=== PATIENT | male | born 1950 | race Hispanic/Latino ===

== ENCOUNTER 2018-12-21 13:00 | Observation (INO) | payer MEDICARE ==
[2018-12-21 13:09] VITALS: BMI 30.7
[2018-12-21 13:39] LABS: BASO # 0.02 K/mm3 (0.0-2.0); BASO % 0.3 % (0.0-3.0); EOS # 0.1 (0.0-0.7); EOS % 2.1 % (1.5-5.0); HEMOGLOBIN 13.7 g/dL (14.0-18.0); LYMPH # 1.5 (1.2-3.4); LYMPH % 24.1 % (22.0-35.0); MEAN CELL VOLUME 88.4 fl (80.0-105.0); MEAN CORPUSCULAR HEMOGLOBIN 29.5 pg (25.0-35.0); MEAN CORPUSCULAR HGB CONC 33.3 g/dl (31.0-37.0); MEAN PLATELET VOLUME 11.1 fl (7.0-11.0); MONO # 0.7 (0.1-0.6); MONO % 10.7 % (1.0-6.0); RBC 4.65 10^6/uL (3.5-6.1); RED CELL DISTRIBUTION WIDTH 13.3 % (11.5-14.5); WHITE BLOOD COUNT 6.3 10^3/uL (4.5-11.0)
[2018-12-21 13:50] LABS: ALB/GLOB RATIO 1.4 (1.1-1.8); ALBUMIN 4.3 g/dL (3.0-4.8); ALT/SGPT 24 U/L (7-56); AST/SGOT 27 U/L (17-59); BLOOD UREA NITROGEN 15 mg/dL (7-21); CALCIUM 9.2 mg/dL (8.4-10.5); GFR NON-AFRICAN AMERICAN > 60
--- NOTE | 2018-12-21 13:56 | RAD ---
Date of service: 12/21/2018 HISTORY: chest pain COMPARISON: No prior study available comparison FINDINGS: LUNGS: No active pulmonary disease. PLEURA: No significant pleural effusion identified, no pneumothorax apparent. CARDIOVASCULAR: No aortic atherosclerotic calcification present. Normal cardiac size. No pulmonary vascular congestion. OSSEOUS STRUCTURES: Mild multilevel degenerative spondylosis of the thoracic spine. VISUALIZED UPPER ABDOMEN: Normal. OTHER FINDINGS: None. IMPRESSION: No active disease.
[2018-12-21 14:01] LABS: TROPONIN I < 0.01 ng/mL
--- NOTE | 2018-12-21 14:02 | ED PDOC ---
Arrival/HPI - General Chief Complaint: Chest Pain Time Seen by Provider: 12/21/18 13:12 Historian: Patient - History of Present Illness Narrative History of Present Illness (Text): 12/21/18 13:21 68 y/o M, with past medical history of cardiac stents x1, presents to the ED for evaluation of chest pressure and shortness of breath since 2 days. Patient reports intermittent onset of symptoms, worsened today at gym during exercise, prompting him to present to the ED for evaluation. Patient states symptoms are often brought on while laying down however, present sometimes without any contributing factors. Patient denies any exacerbation of symptoms with deep inspirations. Patient denies any other associated somatic complaints. Patient denies any fevers, chills, headache, dizziness, cough, abdominal pain, nausea, vomiting, diarrhea, back pain, neck pain, or any other complaints.\ PMD: Dr. Lopez Time/Duration: < week Symptom Onset: Gradual Symptom Course: Unchanged Activities at Onset: Light Context: Home Past Medical History - Provider Review Nursing Documentation Reviewed: Yes - Infectious Disease Hx of Infectious Diseases: None - Cardiac Other/Comment: 1 cardiac stent - Psychiatric Hx Substance Use: No Family/Social History - Physician Review Nursing Documentation Reviewed: Yes Family/Social History: Unknown Family HX Smoking Status: Former Smoker Hx Alcohol Use: No Hx Substance Use: No Allergies/Home Meds Allergies/Adverse Reactions: Allergies Penicillins Allergy (Verified 12/21/18 13:09) RASH Review of Systems - Physician Review All systems were reviewed & negative as marked: Yes - Review of Systems Constitutional: absent: Fevers Respiratory: SOB. absent: Cough Cardiovascular: Chest Pain Gastrointestinal: absent: Abdominal Pain, Diarrhea, Nausea, Vomiting Genitourinary Male: absent: Dysuria, Urinary Output Changes Musculoskeletal: absent: Back Pain, Neck Pain Skin: absent: Rash Neurological: absent: Headache, Dizziness Endocrine: absent: Diaphoresis Psychiatric: absent: Anxiety Physical Exam Vital Signs Reviewed: Yes Vital Signs Temp Pulse Resp BP Pulse Ox 12/21/18 13:00 97.5 F L 70 18 138/66 97 Temperature: Afebrile Blood Pressure: Normal Pulse: Regular Respiratory Rate: Normal Appearance: Positive for: Well-Appearing, Non-Toxic, Comfortable Pain Distress: None Mental Status: Positive for: Alert and Oriented X 3 - Systems Exam Head: Present: Atraumatic, Normocephalic Pupils: Present: PERRL Extroacular Muscles: Present: EOMI Conjunctiva: Present: Normal Respiratory/Chest: Present: Clear to Auscultation, Good Air Exchange. No: Respiratory Distress, Accessory Muscle Use Cardiovascular: Present: Regular Rate and Rhythm, Normal S1, S2. No: Murmurs Abdomen: No: Tenderness, Distention, Peritoneal Signs Upper Extremity: Present: Normal Inspection. No: Cyanosis, Edema Lower Extremity: Present: Normal Inspection. No: Edema Neurological: Present: GCS=15, Speech Normal Skin: Present: Warm, Dry, Normal Color. No: Rashes Psychiatric: Present: Alert, Oriented x 3, Normal Insight, Normal Concentration Medical Decision Making ED Course and Treatment: 12/21/18 13:28 Impression: 68 year old male presents to the ED for evaluation of intermittent chest pressure and shortness of breath. Differential Diagnosis included but are not limited to: -- Chest pain r/o ACS Plan: -- EKG -- Labs -- Chest X-ray -- Urinalysis -- Reassess and disposition Prior Visits: Notes and results from previous visits were reviewed. Progress Notes: 12/21/18 15:10 Labs reviewed with no evidence of leukocytosis or elevated troponin. Discussed case with Dr. Cuenca(cardiology) who states patient should have cycling of troponins given his clinical history. Updated Dr. Lopez(PCP) on patient's presence and spoke to Dr. Santos(covering for Dr. Lopez) regarding patient's condition and accepts onto his service for admission - Lab Interpretations Lab Results: Troponin I < 0.01 ng/mL 12/21/18 13:20 Total Bilirubin 0.4 mg/dL (0.2-1.3) 12/21/18 13:20 AST 27 U/L (17-59) 12/21/18 13:20 ALT 24 U/L (7-56) 12/21/18 13:20 Alkaline Phosphatase 52 U/L (38-126) 12/21/18 13:20 Total Protein 7.5 g/dL (5.8-8.3) 12/21/18 13:20 Albumin 4.3 g/dL (3.0-4.8) 12/21/18 13:20 Globulin 3.2 gm/dL 12/21/18 13:20 Albumin/Globulin Ratio 1.4 (1.1-1.8) 12/21/18 13:20 12/21/18 13:20 12/21/18 13:20 Lab Results 12/21/18 14:30: Urine Color Light yellow, Urine Appearance Clear, Urine pH 6.0, Ur Specific [place] <= 1.005, Urine Protein Negative, Urine Glucose (UA) Negative, Urine Ketones Negative, Urine Blood Negative, Urine Nitrate Negative, Urine Bilirubin Negative, Urine Urobilinogen 0.2, Ur Leukocyte Esterase Negative 12/21/18 13:20: Sodium 140, Potassium 3.8, Chloride 103, Carbon Dioxide 26, Anion Gap 15, BUN 15, Creatinine 0.7 L, Est GFR ( Amer) > 60, Est GFR (Non-Af Amer) > 60, Random Glucose 222 H, Calcium 9.2, Magnesium 1.5 L, Total Bilirubin 0.4, AST 27, ALT 24, Alkaline Phosphatase 52, Troponin I < 0.01, Total Protein 7.5, Albumin 4.3, Globulin 3.2, Albumin/Globulin Ratio 1.4 12/21/18 13:20: PT 13.1 H, INR 1.16, APTT 33.3 12/21/18 13:20: WBC 6.3, RBC 4.65, Hgb 13.7 L, Hct 41.1 L, MCV 88.4, MCH 29.5, MCHC 33.3, RDW 13.3, Plt Count 169, MPV 11.1 H, Neut % (Auto) 62.8, Lymph % (Auto) 24.1, [place] % (Auto) 10.7 H, Eos % (Auto) 2.1, Baso % (Auto) 0.3, Lymph # (Auto) 1.5, [place] # (Auto) 0.7 H, Eos # (Auto) 0.1, Baso # (Auto) 0.02, Absolute Neuts (auto) 3.94 I have reviewed the lab results: Yes - RAD Interpretation Narrative RAD Interpretations (Text): 12/21/18 15:03 Chest X-ray reviewed by radiologist, shows: FINDINGS: LUNGS: No active pulmonary disease. PLEURA: No significant pleural effusion identified, no pneumothorax apparent. CARDIOVASCULAR: No aortic atherosclerotic calcification present. Normal cardiac size. No pulmonary vascular congestion. OSSEOUS STRUCTURES: Mild multilevel degenerative spondylosis of the thoracic spine. VISUALIZED UPPER ABDOMEN: Normal. OTHER FINDINGS: None. IMPRESSION: No active disease. Radiology Orders: 12/21/18 13:21 CHEST PORTABLE [RAD] Stat Hand Scudder: Radiologist - EKG Interpretation EKG Interpretation (Text): 12/21/18 13:05 EKG reviewed, shows NSR @ 68bpm, incomplete RBBB, No ST elevations. Interpreted by ED Physician: Yes Type: 12 lead EKG - Medication Orders Current Medication Orders: 12/21/18 15:22 Orders Category Date Time Status EKG [ELECTROCARDIOGRAM] Stat Cardiology 12/21/18 13:05 Completed COMP METABOLIC PANEL Stat Chem 12/21/18 13:20 Completed MAGNESIUM Stat Chem 12/21/18 13:20 Completed TROPONIN I Stat Chem 12/21/18 13:20 Completed Cardiology Consult Routine Cons 12/21/18 15:09 Ordered Heart Healthy Diet [DIET] Diets 12/21/18 Dinner Ordered EKG-ED [EDNURTX] STAT ED Care 12/21/18 13:22 Active EKG-ED [EDNURTX] STAT ED Care 12/21/18 13:28 Active CHEST PORTABLE [RAD] Stat Exams 12/21/18 13:21 Completed CBC (WITH DIFFERENTIAL) Stat CARMEN 12/21/18 13:20 Completed PARTIAL THROMBOPLASTIN TIME [COAG] Stat CARMEN 12/21/18 13:20 Completed PROTHROMBIN TIME [COAG] Stat CARMEN 12/21/18 13:20 Completed IV Insertion (Saline Lock) ONCE NURSING 12/21/18 13:21 Active ED Admit [ED Patient Status Change] Stat PT Status 12/21/18 15:08 Ordered Call MD for full admit orders As Ordered Pt Care 12/21/18 15:09 Ordered Consults Communicated PRN Pt Care 12/21/18 15:09 Ordered URINALYSIS Stat URINALYSIS 12/21/18 14:30 Completed - Scribe Statement The provider has reviewed the documentation as recorded by the Scribe Rula Batres. All medical record entries made by the Scribe were at my direction and personally dictated by me. I have reviewed the chart and agree that the record accurately reflects my personal performance of the history, physical exam, medical decision making, and the department course for this patient. I have also personally directed, reviewed, and agree with the discharge instructions and disposition. Disposition/Present on Arrival - Present on Arrival History of DVT/PE: No History of Uncontrolled Diabetes: No Urinary Catheter: No History of Decub. Ulcer: No History Surgical Site Infection Following: CABG - Mediastinitis, None - Disposition Referrals: Daniella Lopez MD [Primary Care Provider] - Follow up with primary Forms: [employer] (Syriac)
[2018-12-21 14:04] LABS: INR 1.16; PARTIAL THROMBOPLASTIN TIME 33.3 Seconds (26.9-38.3); PROTHROMBIN TIME 13.1 SECONDS (9.4-12.5)
--- NOTE | 2018-12-21 14:19 | CARD ---
APPROVED REPORT Date of service: 12/21/2018 EKG Measurement Heart [id number] <Conclusion> Normal sinus rhythm Incomplete right bundle branch block Borderline ECG
[2018-12-21 14:41] LABS: URINE APPEARANCE CLEAR (CLEAR); URINE BILIRUBIN NEGATIVE (NEGATIVE); URINE BLOOD NEGATIVE (NEGATIVE); URINE COLOR LIGHT YELLOW (YELLOW); URINE GLUCOSE (UA) NEGATIVE (NEGATIVE); URINE LEUKOCYTE ESTERASE NEGATIVE Leu/uL (NEGATIVE); URINE PROTEIN NEGATIVE mg/dL (<30 mg/dL); URINE UROBILINOGEN 0.2 E.U./dL (<1 E.U./dL)
[2018-12-21 17:28] VITALS: O2SAT 95
[2018-12-21] MEDS ORDERED: Magnesium Sulfate 2 GM in Sodium Chloride 0.9% 100 ML IV ONE (20:45)
[2018-12-21] MEDS ORDERED: Magnesium Sulfate 2 GM in 50 ml Water IVPB ONE (21:15)
[2018-12-21 21:36] LABS: HDL CHOLESTEROL 27 mg/dL (29-60)
[2018-12-21 21:47] LABS: LDL CHOLESTEROL 107 mg/dL (0-129)
[2018-12-21 21:49] LABS: TROPONIN I < 0.01 ng/mL
[2018-12-21] MEDS: Insulin Reg-LOW-Coverage SC SCH (22:30)
[2018-12-22 01:47] VITALS: RESP 20
--- NOTE | 2018-12-22 07:04 | CP.PCM.HP ---
<TrellNeil - Last Filed: 12/22/18 10:59> History of Present Illness - History of Present Illness History of Present Illness: Neil Cai- Internal Medicine Resident- History and Physical/Discharge Summary on Behalf of Dr. Bender Subjective: CC: Chest Pain HPI: Patient is a 68 year old male with a past medical history of DM, HPL, CAD s/p 2 stents who was admitted for evaluation and treatment of chest pain which began 3 days ago with no specific provoking event. States the pain remained localized to the sternal region and was characterized as being intermittently heavy and sharp. The pain was not associated with activity. States pain was worsened with rest. Denies associated diaphoresis, nausea, dizziness, palpitations. Further denies fever, chills, headache, abdominal pain, vomiting, diarrhea, and urinary symptoms. 12 point ROS negative except as indicated in the HPI Past Medical History: DM, HPL, CAD s/p 2 stents Past Surgical History: coronary artery stent placement x 2 Allergies: PCN Social History: denies ETOH use, denies tobacco use, denies illicit drug use Family history: non-contributory Physical Examination: - Constitutional Appears: Non-toxic, No Acute Distress - Head Exam Head Exam: ATRAUMATIC, NORMOCEPHALIC - Eye Exam Eye Exam: EOMI - ENT Exam ENT Exam: Mucous Membranes Moist - Neck Exam Neck exam: Positive for: Full Rom - Respiratory Exam Respiratory Exam: Clear to Auscultation Bilateral, NORMAL BREATHING PATTERN - Cardiovascular Exam Cardiovascular Exam: RRR, +S1, +S2. absent: Systolic Murmur - GI/Abdominal Exam GI & Abdominal Exam: Normal Bowel Sounds, Soft. absent: Distended, Firm, Guarding, Organomegaly, Rebound, Tenderness - Extremities Exam Extremities exam: no clubbing, cyanosis, edema - Neurological Exam Neurological exam: Alert, Oriented x 3, CN II- XII intact - Psychiatric Exam Psychiatric exam: Normal Affect, Normal Mood - Skin Skin Exam: Dry, Warm Assessment and Plan: Chest pain r/o ACS CAD s/p 2 stents HPL DM Patient EKG showed no defining ST-T waves changes. Troponins are negative x 3. Cardiology was consulted who recommended outpatient stress test. Patient was started on lipitor 80mg PO QHS and home pravastatin was stopped. Continue all other home medications as previously described. At this time the patient is medically stable for discharge to home. Patient understands and appreciates discharge plan. Patient instructed to follow up with his primary care physician and referrals within three to five days from discharge. Furthermore, the patient is instructed to take medications as prescribed and to return to emergency room for evaluation of new or worsening symptoms including but not limited to intractable headache, fever, chills, dizziness, chest pain, shortness of breath, abdominal pain, nausea, vomiting, diarrhea, constipation, and urinary symptoms. Patient case reviewed with and plan approved by attending physician, Dr. Bender. Present on Admission - Present on Admission Any Indicators Present on Admission: No Past Patient History - Infectious Disease Hx of Infectious Diseases: None - Past Social History Smoking Status: Former Smoker - CARDIAC Other/Comment: 1 cardiac stent - PULMONARY Hx Respiratory Disorders: No - NEUROLOGICAL Hx Neurological Disorder: No - HEENT Hx HEENT Problems: No - RENAL Hx Chronic Kidney Disease: No - ENDOCRINE/METABOLIC Hx Diabetes Mellitus Type 2: Yes - HEMATOLOGICAL/ONCOLOGICAL Hx Blood Disorders: No - INTEGUMENTARY Hx Dermatological Problems: No - MUSCULOSKELETAL/RHEUMATOLOGICAL Hx Falls: No - GASTROINTESTINAL Hx Gastrointestinal Disorders: No - GENITOURINARY/GYNECOLOGICAL Hx Genitourinary Disorders: No - PSYCHIATRIC Hx Psychophysiologic Disorder: No - SURGICAL HISTORY Hx Surgeries: Yes Hx Cardiac Catheterization: Yes Other/Comment: hernia repair Meds Home Medications: Home Medication List Medication Instructions Recorded Confirmed Type Atorvastatin [Lipitor] 80 mg PO DAILY #10 tab 12/22/18 Rx Allergies/Adverse Reactions: Allergies Allergy/AdvReac Type Severity Reaction Status Date / Time Penicillins Allergy RASH Verified 12/21/18 13:09 Results - Vital Signs Recent Vital Signs: Last Vital Signs Temp 97.4 F L 12/22/18 00:00 Pulse 55 L 12/22/18 05:50 Resp 20 12/22/18 00:00 BP 130/68 12/22/18 00:00 Pulse Ox 95 12/22/18 00:00 - Labs Result Diagrams: 12/22/18 07:20 12/22/18 07:20 Labs: Laboratory Results - last 24 hr 12/21/18 12/21/18 12/21/18 13:20 13:20 13:20 WBC 6.3 RBC 4.65 Hgb 13.7 L Hct 41.1 L MCV 88.4 MCH 29.5 MCHC 33.3 RDW 13.3 Plt Count 169 MPV 11.1 H Neut % (Auto) 62.8 Lymph % (Auto) 24.1 [place] % (Auto) 10.7 H Eos % (Auto) 2.1 Baso % (Auto) 0.3 Lymph # (Auto) 1.5 [place] # (Auto) 0.7 H Eos # (Auto) 0.1 Baso # (Auto) 0.02 Absolute Neuts (auto) 3.94 PT 13.1 H INR 1.16 APTT 33.3 Sodium 140 Potassium 3.8 Chloride 103 Carbon Dioxide 26 Anion Gap 15 BUN 15 Creatinine 0.7 L Est GFR ( Amer) > 60 Est GFR (Non-Af Amer) > 60 POC Glucose (mg/dL) Random Glucose 222 H Calcium 9.2 Magnesium 1.5 L Total Bilirubin 0.4 AST 27 ALT 24 Alkaline Phosphatase 52 Troponin I < 0.01 Total Protein 7.5 Albumin 4.3 Globulin 3.2 Albumin/Globulin Ratio 1.4 Triglycerides Cholesterol LDL Cholesterol Direct HDL Cholesterol Urine Color Urine Appearance Urine pH Ur Specific [place] Urine Protein Urine Glucose (UA) Urine Ketones Urine Blood Urine Nitrate Urine Bilirubin Urine Urobilinogen Ur Leukocyte Esterase 12/21/18 12/21/18 12/21/18 14:30 21:15 21:25 WBC RBC Hgb Hct MCV MCH MCHC RDW Plt Count MPV Neut % (Auto) Lymph % (Auto) [place] % (Auto) Eos % (Auto) Baso % (Auto) Lymph # (Auto) [place] # (Auto) Eos # (Auto) Baso # (Auto) Absolute Neuts (auto) PT INR APTT Sodium Potassium Chloride Carbon Dioxide Anion Gap BUN Creatinine Est GFR ( Amer) Est GFR (Non-Af Amer) POC Glucose (mg/dL) 123 H Random Glucose Calcium Magnesium Total Bilirubin AST ALT Alkaline Phosphatase Troponin I < 0.01 Total Protein Albumin Globulin Albumin/Globulin Ratio Triglycerides 226 H Cholesterol 165 LDL Cholesterol Direct 107 HDL Cholesterol 27 L Urine Color Light yellow Urine Appearance Clear Urine pH 6.0 Ur Specific [place] <= 1.005 Urine Protein Negative Urine Glucose (UA) Negative Urine Ketones Negative Urine Blood Negative Urine Nitrate Negative Urine Bilirubin Negative Urine Urobilinogen 0.2 Ur Leukocyte Esterase Negative 12/22/18 06:41 WBC RBC Hgb Hct MCV MCH MCHC RDW Plt Count MPV Neut % (Auto) Lymph % (Auto) [place] % (Auto) Eos % (Auto) Baso % (Auto) Lymph # (Auto) [place] # (Auto) Eos # (Auto) Baso # (Auto) Absolute Neuts (auto) PT INR APTT Sodium Potassium Chloride Carbon Dioxide Anion Gap BUN Creatinine Est GFR ( Amer) Est GFR (Non-Af Amer) POC Glucose (mg/dL) 120 H Random Glucose Calcium Magnesium Total Bilirubin AST ALT Alkaline Phosphatase Troponin I Total Protein Albumin Globulin Albumin/Globulin Ratio Triglycerides Cholesterol LDL Cholesterol Direct HDL Cholesterol Urine Color Urine Appearance Urine pH Ur Specific [place] Urine Protein Urine Glucose (UA) Urine Ketones Urine Blood Urine Nitrate Urine Bilirubin Urine Urobilinogen Ur Leukocyte Esterase <Jae Bender - Last Filed: 12/22/18 17:39> History of Present Illness - History of Present Illness History of Present Illness: Pt seen and examined by me. I have reviewed the note of the medical sales and I agree with it. I have discussed the assessment and plan with the resident. I have reviewed the medications and the last labs. Results - Vital Signs Recent Vital Signs: Last Vital Signs Temp 98.4 F 12/22/18 08:07 Pulse 58 L 12/22/18 08:07 Resp 20 12/22/18 08:07 BP 112/63 12/22/18 08:07 Pulse Ox 95 12/22/18 08:07 - Labs Result Diagrams: 12/22/18 07:20 12/22/18 07:20 Labs: Laboratory Results - last 24 hr 12/21/18 12/21/18 12/22/18 21:15 21:25 06:00 WBC RBC Hgb Hct MCV MCH MCHC RDW Plt Count MPV Neut % (Auto) Lymph % (Auto) [place] % (Auto) Eos % (Auto) Baso % (Auto) Lymph # (Auto) [place] # (Auto) Eos # (Auto) Baso # (Auto) Absolute Neuts (auto) Sodium Potassium Chloride Carbon Dioxide Anion Gap BUN Creatinine Est GFR ( Amer) Est GFR (Non-Af Amer) POC Glucose (mg/dL) 123 H Random Glucose Calcium Total Bilirubin AST ALT Alkaline Phosphatase Troponin I < 0.01 < 0.01 Total Protein Albumin Globulin Albumin/Globulin Ratio Triglycerides 226 H Cholesterol 165 LDL Cholesterol Direct 107 HDL Cholesterol 27 L 12/22/18 12/22/1819 06:41 07:20 07:20 WBC 7.1 RBC 4.63 Hgb 13.5 L Hct 41.6 L MCV 89.8 MCH 29.2 MCHC 32.5 RDW 13.5 Plt Count 181 MPV 11.2 H Neut % (Auto) 50.0 Lymph % (Auto) 33.6 [place] % (Auto) 11.6 H Eos % (Auto) 4.5 Baso % (Auto) 0.3 Lymph # (Auto) 2.4 [place] # (Auto) 0.8 H Eos # (Auto) 0.3 Baso # (Auto) 0.02 Absolute Neuts (auto) 3.55 Sodium 138 Potassium 4.0 Chloride 104 Carbon Dioxide 26 Anion Gap 12 BUN 11 Creatinine 0.7 L Est GFR ( Amer) > 60 Est GFR (Non-Af Amer) > 60 POC Glucose (mg/dL) 120 H Random Glucose 120 H Calcium 9.0 Total Bilirubin 0.3 AST 31 ALT 31 Alkaline Phosphatase 47 Troponin I Total Protein 6.9 Albumin 4.0 Globulin 3.0 Albumin/Globulin Ratio 1.3 Triglycerides Cholesterol LDL Cholesterol Direct HDL Cholesterol
[2018-12-22 07:42] LABS: BASO # 0.02 K/mm3 (0.0-2.0); BASO % 0.3 % (0.0-3.0); EOS # 0.3 (0.0-0.7); EOS % 4.5 % (1.5-5.0); HEMOGLOBIN 13.5 g/dL (14.0-18.0); LYMPH # 2.4 (1.2-3.4); LYMPH % 33.6 % (22.0-35.0); MEAN CELL VOLUME 89.8 fl (80.0-105.0); MEAN CORPUSCULAR HEMOGLOBIN 29.2 pg (25.0-35.0); MEAN CORPUSCULAR HGB CONC 32.5 g/dl (31.0-37.0); MEAN PLATELET VOLUME 11.2 fl (7.0-11.0); MONO # 0.8 (0.1-0.6); MONO % 11.6 % (1.0-6.0); RBC 4.63 10^6/uL (3.5-6.1); RED CELL DISTRIBUTION WIDTH 13.5 % (11.5-14.5); WHITE BLOOD COUNT 7.1 10^3/uL (4.5-11.0)
[2018-12-22 07:57] LABS: ALB/GLOB RATIO 1.3 (1.1-1.8); ALT/SGPT 31 U/L (7-56); AST/SGOT 31 U/L (17-59); BLOOD UREA NITROGEN 11 mg/dL (7-21); GFR NON-AFRICAN AMERICAN > 60
[2018-12-22 08:09] VITALS: BP 112/63; PULSE 58; TEMP 98.4
[2018-12-22] MEDS: Insulin Reg-LOW-Coverage SC SCH (08:55)
--- NOTE | 2018-12-22 10:34 | CON ---
DATE: 12/22/2018 REQUESTING PHYSICIAN: Dr. Bender REASON FOR CONSULTATION: Chest pain. HISTORY: This is a 68-year-old man known to me from prior evaluation with a history of coronary artery disease, status post multivessel PCI, who presented to the emergency room complaining of chest discomfort and intermittent dyspnea. He states that his pain has been ongoing off and on for the past several days. He describes it as a heaviness. It occurs at times with exertion as well as at rest, especially when lying down. He has also had some exertional dyspnea. Some of these symptoms were similar to those which he had prior to his prior stent placement. He did have two stents placed in 2010 and a repeat stent performed in 2016. He has not had a recent stress test. PAST HISTORY: Notable for the problems mentioned above. MEDICATIONS AT HOME: Include Altace 2.5 mg daily, aspirin, Glucotrol 10 mg daily, metoprolol 50 mg daily, Nexium 40 mg daily, simvastatin 20 mg daily, and Janumet b.i.d. ALLERGIES: HE HAS HAD A REACTION TO PENICILLIN IN THE PAST. SOCIAL HISTORY: He is a former smoker. He denies alcohol use. FAMILY HISTORY: Unremarkable for premature heart disease. REVIEW OF SYSTEMS: Ten-point review of systems otherwise unremarkable. PHYSICAL EXAMINATION: GENERAL: He is a healthy-appearing middle-aged man. VITAL SIGNS: His blood pressure is 130/68 with a pulse of 56, respirations are 14. He is afebrile. HEENT: Normocephalic, atraumatic. NECK: Supple. No JVD noted. CHEST: A few scattered rhonchi are heard. HEART: PMI normal position. No pathological murmur or gallops noted. ABDOMEN: Soft, nontender, normoactive bowel sounds. EXTREMITIES: No clubbing, cyanosis, or edema. SKIN: Warm and dry. PSYCHIATRIC: Normal mood and affect. NEUROLOGIC: Alert and oriented x3. No gross motor or sensory deficits notable. DIAGNOSTIC DATA: White count 6.3, hemoglobin and hematocrit of 13.7 and 41.1 with a platelet count of 169,000. PT and PTT are normal. Potassium 3.8. BUN and creatinine of 15 and 0.7, glucose 222. Two sets of cardiac enzymes are negative. Cholesterol 165 with triglycerides 226, LDL is 107 with HDL of 27. Chest x-ray reveals a normal cardiac silhouette with clear lung perdomo. Electrocardiogram reveals sinus rhythm with an incomplete right bundle-branch block. IMPRESSION: 1. Chest pain and dyspnea, possible progressive coronary artery disease. 2. Known coronary artery disease, status post prior percutaneous coronary intervention. 3. History of hypertension, diabetes, and hyperlipidemia. 4. Rest of problems as noted. RECOMMENDATIONS: If his third set of cardiac enzymes is negative, discharge home at this time would be appropriate with an outpatient stress test to be arranged. Continued risk factor control is advised. If he has any worsening symptoms, he was instructed to return to the emergency room. Further plans will be made based upon the results of his stress test. Thank you for this consultation and I will be happy to arrange outpatient followup as needed. Greg Zamorano MD
--- NOTE | 2018-12-22 20:17 | HP ---
DATE OF EXAM: 12/22/2018 HISTORY OF PRESENT ILLNESS: The patient was seen and examined. I do agree with the note of the nuclear medical technologist. I was involved in the plan of care. The patient was initially coming to the hospital because of a chest pain. He has a history of diabetes, dyslipidemia, and coronary artery disease. The patient had cardiac enzymes which were negative. His labs were reviewed. The patient had an EKG that showed no ST-T changes. He was started on high-intensity statin therapy with Lipitor because of the history of coronary artery disease, his age, diabetes. His labs were reviewed. He was seen by Dr. Zamorano. I did speak to Dr. Zamorano regarding the case. He was cleared to be discharged home and follow up as an outpatient. He had been placed on a heart-healthy diet. The patient had hypomagnesemia. His magnesium was replaced. He had a total cholesterol of 226. Discharged home. PLAN: 1. Followup with Dr. Barnes in 1 to 2 weeks. 2[address] Followup with Dr. Zamorano in 1 to 2 weeks. Jae Bender MD
== END 2018-12-22 11:04 | disposition home or self-care (01) ==
LOC: ED 13:00 → ERH 15:08 → 3RNO 17:05
PROVIDERS: ADMIT Internal Medicine Nephrology; ATTEND Internal Medicine Nephrology
DX: I25.10 Atherosclerotic heart disease of native coronary artery without angina pectoris (principal); I45.10 Unspecified right bundle-branch block; I10 Essential (primary) hypertension; E11.9 Type 2 diabetes mellitus without complications; E78.5 Hyperlipidemia, unspecified; E83.42 Hypomagnesemia; Z87.891 Personal history of nicotine dependence; Z95.5 Presence of coronary angioplasty implant and graft
CPT/HCPCS: 36415; 71045; 80053; 80061; 81003; 82948; 83735; 84484; 85025; 85610; 85730; 93005; 99285; G0378